=== PATIENT | male | born 1980 | race American Indian/Alaskan Native ===

== ENCOUNTER 2019-01-15 23:51 | Emergency (ER) | payer SELFPAY ==
[2019-01-16 01:10] VITALS: BP 124/79
--- NOTE | 2019-01-16 01:34 | Emergency Department Report ---
ED Lower Extremity HPI - General Chief Complaint: Extremity Injury, Lower Stated Complaint: FOOT PAIN Time Seen by Provider: 01/16/19 01:05 Source: patient Mode of arrival: Ambulatory Limitations: No Limitations - History of Present Illness Initial Comments: 38-year-old male presents to ED with right foot pain. Patient reports pain and swelling. States he was seen at an outside hospital on yesterday and was given an orthopedic shoe for his foot. Patient states "I need a cast. " Patient denies any recent trauma to the foot. Patient is ambulatory without difficulty. MD Complaint: foot injury -: year(s) (1) Injury: Foot: Right Severity: mild Improves With: nothing Worsens With: nothing Associated Symptoms: ambulatory - Related Data Allergies Allergy/AdvReac Type Severity Reaction Status Date / Time No Known Allergies Allergy Verified 01/15/19 23:53 ED Review of Systems ROS: Stated complaint: FOOT PAIN Other details as noted in HPI Comment: All other systems reviewed and negative Musculoskeletal: as per HPI ED Past Medical Hx - Past Medical History Previous Medical History?: Yes Hx Psychiatric Treatment: Yes (schizophrenic) - Surgical History Past Surgical History?: No - Social History Smoking Status: Current Every Day Smoker Substance Use Type: None ED Physical Exam - General Limitations: No Limitations General appearance: alert, in no apparent distress - Head Head exam: Present: atraumatic, normocephalic - Eye Eye exam: Present: normal appearance - ENT ENT exam: Present: mucous membranes moist - Neck Neck exam: Present: normal inspection - Respiratory Respiratory exam: Present: normal lung sounds bilaterally. Absent: respiratory distress - Cardiovascular Cardiovascular Exam: Present: regular rate, normal rhythm - GI/Abdominal GI/Abdominal exam: Absent: distended - Extremities Exam Extremities exam: Present: normal inspection (no swelling or deformity), tenderness (mild tenderness to lateral right foot), normal capillary refill, other (pt currently wearing an orthopedic shoe that he was given from an outside hospital) - Neurological Exam Neurological exam: Present: alert, oriented X3. Absent: motor sensory deficit - Psychiatric Psychiatric exam: Present: normal affect, normal mood - Skin Skin exam: Present: warm, dry, intact, normal color ED Course Vital Signs 01/15/19 01/16/19 23:55 01:10 Temperature 98.3 F 98.2 F Pulse Rate 89 95 H Respiratory 18 16 Rate Blood Pressure 118/76 Blood Pressure 124/79 [Left] O2 Sat by Pulse 100 99 Oximetry ED Lower Extremity MDM - Differential Diagnosis foot sprain Critical care attestation.: If time is entered above; I have spent that time in minutes in the direct care of this critically ill patient, excluding procedure time. ED Disposition Clinical Impression: Right foot pain Disposition: DC-01 TO HOME OR SELFCARE Is pt being admited?: No Condition: Stable Instructions: Foot Fracture in Adults (ED), Arthralgia (ED) Referrals: TAMARA BAÑUELOS MD [Staff Physician] - 3-5 Days Time of Disposition: 01:40
== END 2019-01-16 01:56 | disposition home or self-care (01) ==
LOC: ED 23:51
DX: M79.671 Pain in right foot (principal); F20.9 Schizophrenia, unspecified; F17.200 Nicotine dependence, unspecified, uncomplicated